=== PATIENT | female | born 1980 | race Two or more races ===

== ENCOUNTER 2025-01-18 08:45 | Outpatient (RCR) | payer OTHER, SELFPAY ==
[2025-01-17 07:58] LABS: HCG Qualitative,Urine Negative
--- NOTE | 2025-01-17 08:07 | XR_ITS ---
Examination: Nuclear medicine thyroid uptake and scan Date and time: Jan 17 2025 0801 hours INDICATIONS: Status post right thyroidectomy, diagnosis nontoxic multinodular goiter TECHNIQUE AND FINDINGS: Oral administration [id number] uCi [id number] 6 hour 24 hour uptake values as well as anterior oblique scans 6 hour uptake 8.3% normal range 6-24% 24 hour uptake 14.3% normal range 10-36% No right thyroid lobe activity Normal appearing left thyroid lobe IMPRESSION: Uptake values within normal range No left thyroid nodule noted
== END 2025-01-23 23:59 | disposition home or self-care (01) ==
LOC: SNUC 08:45
PROVIDERS: PCP Family Medicine; Referring Provider Family Medicine; Visit Provider Family Medicine
DX: E04.1 Nontoxic single thyroid nodule (principal); Z32.00 Encounter for pregnancy test, result unknown
CPT/HCPCS: 78013; 81025; A9516

== ENCOUNTER → 2025-02-01 | Outpatient (CLI) | payer OTHER, SELFPAY ==
--- NOTE | 2025-02-01 10:00 | XR_ITS ---
Examination: Thyroid sonography complete TECHNIQUE: Grayscale sonographic images thyroid lobes Date and time: February 01, 2025 0947 hours INDICATIONS: Globus sensation several months, history right thyroidectomy several years ago FINDINGS: Absent right thyroid Left thyroid 5.6 cm, multiple left thyroid cysts, the largest in the upper pole 5 x 3 mm lower pole 8 x 6 mm, 5 x 5 mm No solid nodules IMPRESSION: Small benign left thyroid cysts Mild left thyromegaly
== END | disposition home or self-care (01) ==
PROVIDERS: PCP Family Medicine; Referring Provider Family Medicine; Visit Provider Family Medicine
DX: E04.2 Nontoxic multinodular goiter (principal)
CPT/HCPCS: 76536

== ENCOUNTER → 2025-03-07 | Outpatient (CLI) | payer OTHER, SELFPAY ==
--- NOTE | 2025-03-07 08:52 | XR_ITS ---
Examination: Esophagram standard Fluoroscopy Upright PA chest single view Upright soft tissue lateral neck single view 14 spot fluoroscopic images of the esophagus Date and time: March 07, 2025 0913 hours INDICATIONS: Difficulty swallowing 6 months. TECHNIQUE AND FINDINGS: Upright PA chest single view demonstrates normal heart size clear lungs Soft tissue lateral neck single view demonstrates moderate degenerative disc disease C5-C6, C6-C7 with anterior osteophyte formation Patient swallowed thin barium with primary peristaltic esophageal waves. No constricting esophageal lesion Mild intermittent gastroesophageal reflux. There is no stricture at the gastroesophageal junction Fluoroscopy 0.12 minutes 14 spot fluoroscopic images IMPRESSION: Mild intermittent gastroesophageal reflux There is no stricture at the gastroesophageal junction
== END | disposition home or self-care (01) ==
LOC: CDIM 08:39
PROVIDERS: PCP Family Medicine; Referring Provider Family Medicine; Visit Provider Family Medicine
DX: K21.9 Gastro-esophageal reflux disease without esophagitis (principal)
CPT/HCPCS: 74220; A4649